=== PATIENT | female | born 1950 | race Caucasian/White ===

== ENCOUNTER 2019-06-15 09:02 | Inpatient (IN) | payer OTHER, MEDICARE ==
[~2019-06-15] VITALS: Ht 165.1 cm; Wt 95.7 kg
[2019-06-15] VITALS (7 sets, daily range): BP systolic 137–160
[2019-06-15] MEDS ORDERED: HYDROcodone/ACETAMIN 10-325 MG TAB ONE (10:12)
[2019-06-15] MEDS ORDERED: HYDROcodone/ACETAMIN 10-325 MG TAB PO ONE (10:15)
[2019-06-15] MEDS ORDERED: LISI-600 PO (10:28)
[2019-06-15] MEDS ORDERED: LIP20 PO (10:28)
[2019-06-15] MEDS ORDERED: CYCL-10 PO (10:28)
[2019-06-15] MEDS ORDERED: OMEP40CA33 PO (10:28)
[2019-06-15] MEDS ORDERED: LYR50 PO (10:28)
[2019-06-15] MEDS ORDERED: DULO60CA41 PO (10:28)
[2019-06-15] MEDS ORDERED: BUTA-280 PO (10:28)
[2019-06-15] MEDS ORDERED: CEFAZOLIN 1 GM IVPB PREMIX 50 ML IV ONE (12:15)
[2019-06-15] MEDS ORDERED: FAMOTIDINE PF 20 MG/2 ML VIAL ONE (13:25)
[2019-06-15] MEDS ORDERED: DILTIAZEM HCL 25 MG/5 ML VIAL ONE (14:03)
[2019-06-15] MEDS: D5/0.45 NS 1,000 ML IV SCH (15:23)
[2019-06-15] MEDS ORDERED: ACETAMINOPHEN 325 MG TABLET PO PRN (15:30)
[2019-06-15] MEDS ORDERED: HYDROmorphone 1 MG INJ. 1 MG/ML AMPUL IVP PRN (15:30)
[2019-06-15] MEDS ORDERED: ONDANSETRON HCL 4 MG/2 ML VIAL IVP PRN (15:30)
[2019-06-15] MEDS ORDERED: HYDROcodone/ACETAMIN 5-325 MG TAB (NORCO/ VICODIN) PO PRN (15:30)
[2019-06-15] MEDS ORDERED: NS IRRIG SOLN 1000 ML IR ONE (15:35)
[2019-06-15] MEDS ORDERED: ONDANSETRON HCL 4 MG/2 ML VIAL IVP ONE (15:35)
[2019-06-15] MEDS ORDERED: SUCCINYLCHOLINE CHLORIDE 20 MG/ML(QUELICIN) IVP ONE (15:35)
[2019-06-15] MEDS ORDERED: LR 1,000 ML IV.SOLN IV ONE (15:35)
[2019-06-15] MEDS ORDERED: MIDAZOLAM HCL 5 MG/5 ML VIAL IVP ONE (15:35)
[2019-06-15] MEDS ORDERED: OXYTOCIN 10 UNIT/ML VIAL IV ONE (15:35)
[2019-06-15] MEDS ORDERED: ROCURONIUM BROMIDE 10 MG/ML (ZEMURON) IV ONE (15:35)
[2019-06-15] MEDS ORDERED: PROPOFOL 200MG/ 20ML VIAL (DIPRIVAN) IV ONE (15:35)
[2019-06-15] MEDS ORDERED: DEXAMETHASONE SOD PHOSPHATE 4 MG/ML VIAL IVP ONE (15:35)
[2019-06-15] MEDS ORDERED: METOCLOPRAMIDE HCL 10 MG/2 ML VIAL IVP ONE (15:35)
[2019-06-15] MEDS ORDERED: ISOSULFAN BLUE 5 ML VIAL (LYMPHAZURIN) INJ ONE (15:35)
[2019-06-15] MEDS ORDERED: fentaNYL CITRATE 250 MCG/5 ML AMP IV ONE (15:35)
[2019-06-15] MEDS ORDERED: KETOROLAC TROMETHAMINE 30 MG VIAL IVP ONE (15:35)
[2019-06-15] MEDS ORDERED: SEVOFLURANE 15 MIN GAS INH ONE (15:35)
--- NOTE | 2019-06-15 16:40 | NUR ---
initial notes rec patient from rr s/p bilateral mastectomy. awake lert with ob elevated. resp easy and unlabored, no sob noted. dressing on the chest area intact with an abd binder/ 4 omar's in placed 2 on each side draining to small mod amoint of reddish drainage. c/o a headache. bed to the lowest position and side rails up and locked. call light within reache and knows when to call for assistance.
[2019-06-15] MEDS ORDERED: CYCLOBENZAPRINE HCL 10 MG TABLET (FLEXERIL) PO PRN (17:30)
[2019-06-15] MEDS ORDERED: PREGABALIN 25 MG CAPSULE (LYRICA) PO PRN (17:30)
[2019-06-15] MEDS: CEFAZOLIN 1 GM IVPB PREMIX 50 ML IV SCH (17:36)
[2019-06-15] MEDS: HYDROcodone/ACETAMIN 5-325 MG TAB (NORCO/ VICODIN) PO PRN (17:37)
--- NOTE | 2019-06-15 20:00 | NUR ---
PT RESTING IN BED QUIETLY AT THIS TIME. PT IS A&OX4. PT C/O 6/10 PAIN LEVEL IN HER BACK AND AT HER INCISION SITE POST PROCEDURE. PT REQUESTING PRN NORCO. WILL ADMINISTER PT NORCO SCHEDULED PER PT REQUEST. PT'S BP ELEVATED AT THIS TIME, OTHERWISE VSS. NO SIGNS OF DISTRESS NOTED. PT'S SURGICAL SITES CDI. OLIVIA DRAINS EMPTIED AT THIS TIME. CHEST BINDER IN PLACE. BED IN LOWEST POSITION. CALL LIGHT IS WITHIN REACH. WILL CONTINUE TO MONITOR AND TREAT PT.
[2019-06-15] MEDS: FAMOTIDINE PF 20 MG/2 ML VIAL IVP SCH (21:57)
[2019-06-16] VITALS: BP_SYST 135
[2019-06-16] MEDS: D5/0.45 NS 1,000 ML IV SCH ×2 (01:40→11:45)
[2019-06-16] MEDS: CEFAZOLIN 1 GM IVPB PREMIX 50 ML IV SCH (02:14)
[2019-06-16] MEDS: HYDROcodone/ACETAMIN 5-325 MG TAB (NORCO/ VICODIN) PO PRN ×3 (03:24→10:38)
--- NOTE | 2019-06-16 06:59 | NUR ---
PT RESTING QUIETLY IN BED AT THIS TIME. PT REPORTS BACK PAIN AGAIN 06/29. PT WAS ADMINISTERED PRN NORCO PER PT REQUEST. PT AMBULATING TO THE RESTROOM X1 ASSIST. NO SIGNS OF DISTRESS NOTED. PT'S BP TRENDING BACK DOWN INTO 130'S. PT'S OLIVIA DRAINS DRAINING ADEQUATELY. CALL LIGHT WITHIN REACH. WILL CONTINUE TO MONITOR AND TREAT PT.
--- NOTE | 2019-06-16 07:50 | NUR ---
opening note patient is sitting on the edge of the bed, visitor in the room, A&Ox4, assessment completed, educated civil engineering professional light system and plan of care, patient verbalized understanding, patient states pain is at a tolerable level at this time, IV fluids running at this time, patient asked if I can call Dr Beauchamp to come see her now but I educated her that I cannot do that because Dr Beauchamp does see other patients and cannot always come at the time the patient requests him to but that I will let her know when he is here to do her rounds, patient verbalized understanding, no other needs addressed at this time, fall/safety precautions in place.
[2019-06-16 08:00] VITALS: BP_SYST 130
[2019-06-16] MEDS ORDERED: ATORVASTATIN 20 MG TABLET PO SCH (09:00)
[2019-06-16] MEDS ORDERED: PANTOPRAZOLE SODIUM 40 MG TAB PO SCH (09:00)
[2019-06-16] MEDS ORDERED: ENOXAPARIN SODIUM 30 MG/0.3 ML SYRINGE SUBCUT SCH (09:00)
[2019-06-16] MEDS ORDERED: DULoxetine HCL 30 MG CAPSULE.DR (CYMBALTA) PO SCH (09:00)
[2019-06-16] MEDS ORDERED: LISINOPRIL 20 MG TABLET PO SCH (09:00)
[2019-06-16] MEDS: FAMOTIDINE PF 20 MG/2 ML VIAL IVP SCH (09:16)
--- NOTE | 2019-06-16 10:38 | NUR ---
prn pain medication OLIVIA drain emptied, patient complaining of pain, educated on medication uses and side effects, patient verbalized understanding, no other needs addressed at this time, fall/safety precautions in place.
--- NOTE | 2019-06-16 11:45 | NUR ---
patient still complaining of pain patient stated that the pain medication I gave her earlier did not work and is feeling worse pain, educated on mediation use and side effects, patient also requested to have her lyrica, no other needs addressed at this time, fall/safety precautions in place.
[2019-06-16 12:34] VITALS: BP_SYST 144
--- NOTE | 2019-06-16 13:00 | NUR ---
INFORMED CHARGE NURSES ABOUT LAB DRAW THIS MORNING patient informed me and FELIPE Mora that lab techs lory blood this morning, the lab techs came earlier to tell me that they meant to draw the blood from the patient in B bed not from her, charge nurses and [facility] director are aware of this situation.
[2019-06-16 14:57] VITALS: BP_SYST 144
--- NOTE | 2019-06-16 15:25 | NUR ---
D/C Patient Patient given medication reconciliation form and D/C instructions. Exit Care provided. Patient verbalized understanding. MD discussed with patient the results and treatment provided. Ambulatory with steady gait for discharge to home. Patient in stable condition, ID band removed. IV catheter removed, intact and dressing applied, no active bleeding. Patient educated on pain management. All belongings sent with patient. OLIVIA drains left in per MD order.
== END 2019-06-16 15:25 | disposition home or self-care (01) | DRG 581 ==
LOC: SMU 09:17 → EDSTATUS 12:30 → SMU 14:33
PROVIDERS: ADMIT Colon & Rectal Surgery; ATTEND Colon & Rectal Surgery
PROC: 07B60ZX Excision of Left Axillary Lymphatic, Open Approach, Diagnostic (ICD-10-PCS; 2019-06-15)
PROC: 07B50ZX Excision of Right Axillary Lymphatic, Open Approach, Diagnostic (ICD-10-PCS; 2019-06-15)
PROC: 0HTV0ZZ Resection of Bilateral Breast, Open Approach (ICD-10-PCS; principal; 2019-06-15 12:30)
DX: C50.912 Malignant neoplasm of unspecified site of left female breast (principal); C50.911 Malignant neoplasm of unspecified site of right female breast; K21.9 Gastro-esophageal reflux disease without esophagitis; M19.90 Unspecified osteoarthritis, unspecified site; Z88.1 Allergy status to other antibiotic agents; Z88.8 Allergy status to other drugs, medicaments and biological substances
CPT/HCPCS: 78195; 82962; 87081; 88305; 88307; A9541; J0330; J0690; J1100; J1650; J1885; J2250; J2405; J2590; J2704; J2765; J3010; J3490; J7120; Q9968